=== PATIENT | female | born 1945 | race Caucasian/White ===

== ENCOUNTER 2018-05-16 07:00 | Day surgery (SDC) | payer OTHER ==
[~2018-05-16] VITALS: Ht 165.1 cm; Wt 74.8 kg
[~2018-05-16 07:00] MED LIST: ANALPRAM HC 2.530 GM RC; CATAFLAM50 MG PO; CRESTOR10 MG PO; HYDRALAZINE HCL50 MG PO; METFORMIN HCL500 M2 PO; PERCOCET 5/3251 TAB PO; RECTICARE30 GM TP; SYNTHROID125 MCG; TOPROL XL50 M1; ZESTRIL20 MG; ZESTRIL40 M1 PO
[2018-05-17] MEDS ORDERED: GABAPENTIN100 MG PO (09:38)
[2018-05-17] MEDS ORDERED: RECTICARE30 GM TOP (09:38)
[2018-05-17] MEDS ORDERED: PERCOCET 5-3251 EACH PO (09:39)
[2018-05-17] MEDS ORDERED: MIRALAX17 GM PO (09:39)
== END 2018-05-17 08:00 | disposition home or self-care (01) ==
LOC: CIR.AMB 07:00 → SURH 10:45 → EDSTATUS 11:15 → SURH 11:15 → O/R 13:45 → CIR.AMB 05-17 08:00 → SURH 05-17 10:29 → O/R 05-17 10:29
DX: N81.6 Rectocele (principal); K59.02 Outlet dysfunction constipation; K64.8 Other hemorrhoids